=== PATIENT | female | born 1975 | race African-American/Black ===

== ENCOUNTER 2018-04-18 18:20 | Emergency (ER) | payer SELFPAY ==
[~2018-04-18] VITALS: Ht 160 cm; Wt 70.3 kg
[2018-04-18 18:20] VITALS: BP 148/92
[2018-04-18] MEDS ORDERED: HYDR25TA PO (19:09)
[2018-04-18] MEDS ORDERED: CLON0.5T11 PO (19:09)
[2018-04-18] MEDS ORDERED: LAMO25TA5 PO (19:09)
[2018-04-18] MEDS ORDERED: PERM60CR12 TP (19:09)
--- NOTE | 2018-04-18 19:10 | PHYS DOC ---
Past Medical History Past Medical History: Anxiety Adult General Chief Complaint Chief Complaint: BODY/HEAD LICE HPI HPI Patient is a 42 year old female with a history of anxiety who presents today with 2 complaints. She does requesting a refill of Klonopin and Lamictal. She is also requesting medication for head lice. Patient states she is planning to follow-up with her own doctor to get more medication for her anxiety but she does not have an appointment anytime soon. Patient denies any suicidal or homicidal ideations. She states she's had the head lice on and off for the last 1 year. Patient denies any suicidal or homicidal ideations. Review of Systems Review of Systems Constitutional: Denies fever or chills [] Eyes: Denies change in visual acuity, redness, or eye pain [] HENT: Denies nasal congestion or sore throat [] Respiratory: Denies cough or shortness of breath [] Cardiovascular: No additional information not addressed in HPI [] GI: Denies abdominal pain, nausea, vomiting, bloody stools or diarrhea [] : Denies dysuria or hematuria [] Musculoskeletal: Denies back pain or joint pain [] Integument: Reports headlight Neurologic: Denies headache, focal weakness or sensory changes [] Pysch: Request a refill medication All other systems were reviewed and found to be within normal limits, except as documented in this note. Allergies Allergies Allergies Coded Allergies Type Severity Reaction Last Updated Verified No Known Drug Allergies 04/18/18 No Physical Exam Physical Exam Constitutional: Well developed, well nourished, no acute distress, non-toxic appearance. [] HENT: Normocephalic, atraumatic, bilateral external ears normal, oropharynx moist, no oral exudates, nose normal. [] Eyes: PERRLA, EOMI, conjunctiva normal, no discharge. [] Neck: Normal range of motion, no tenderness, supple, no stridor. [] Cardiovascular:Heart rate regular rhythm, no murmur [] Lungs & Thorax: Bilateral breath sounds clear to auscultation [] Abdomen: Bowel sounds normal, soft, no tenderness, no masses, no pulsatile masses. [] Skin: Warm, dry, no erythema, no rash. [] Back: No tenderness, no CVA tenderness. [] Extremities: No tenderness, no cyanosis, no clubbing, ROM intact, no edema. [] Neurologic: Alert and oriented X 3, normal motor function, normal sensory function, no focal deficits noted. [] Psychologic: Appears very anxious, pulling strings from her sweatshirt Current Patient Data Vital Signs Vital Signs Date Time Temp Pulse Resp B/P (MAP) Pulse Ox O2 Delivery O2 Flow Rate FiO2 04/18/18 18:20 98.6 102 22 148/92 (110) 99 Room Air 98.6 EKG EKG [] Radiology/Procedures Radiology/Procedures [] Course & Med Decision Making Course & Med Decision Making Pertinent Labs and Imaging studies reviewed. (See chart for details) This is a 42-year-old female patient presented to the ED today with request for refill for Klonopin and Lamictal. Short supply rx given. Patient is also here to be examined for head lice. Given prescription for permethrin. Follow-up with her own doctor as soon as she can. Dragon Disclaimer Dragon Disclaimer This electronic medical record was generated, in whole or in part, using a voice recognition dictation system. Departure Departure Impression: Primary Impression: Anxiety Additional Impression: Head lice Disposition: HOME, SELF-CARE Condition: STABLE Referrals: UNKNOWN PCP NAME (PCP) Follow-up with your own doctor as soon as possible Patient Instructions: Anxiety and Panic Attacks, [id number], Lice, Head and Pubic Additional Instructions: You were evaluated in the emergency room. We gave you a short supply of your medications. Follow-up with your doctor as soon as possible. Scripts Clonazepam (CLONAZEPAM) 0.5 Mg Tablet 1 TAB PO DAILY, #14 TAB Prov: SHERRY PARSONS APRN 04/18/18 Lamotrigine (LAMICTAL) 25 Mg Tablet 1 TAB PO BID, #60 TAB 0 Refills Prov: SHERRY PARSONS APRN 04/18/18 Hydroxyzine Hcl (HYDROXYZINE HCL) 25 Mg Tablet 1 TAB PO TID, #30 TAB 0 Refills Prov: SHERRY PARSONS APRN 04/18/18 Permethrin (PERMETHRIN) 60 Gm Cream..g. 1 CAIO TP ONCE, #60 GM 1 Refill Repeat in 7 days Prov: SHERRY PARSONS APRN 04/18/18 Attending Co-Sign Attending Co-Sign The patient was not seen by me. The [facility] chart was reviewed. I agree with the plan of care. Problem Qualifiers SHERRY PARSONS APRN Apr 18, 2018 19:10 HERMELINDO ANNE MD Apr 20, 2018 14:53
== END 2018-04-18 19:24 | disposition home or self-care (01) ==
LOC: ER 18:20
DX: F41.9 Anxiety disorder, unspecified (principal); B85.0 Pediculosis due to Pediculus humanus capitis
CPT/HCPCS: 99283